=== PATIENT | female | born 1955 | race Caucasian/White ===

== ENCOUNTER 2019-01-04 23:13 | Observation (INO) ==
[2019-01-04 23:41] LABS: Basophils # 0.1 K/mcL (0.0-0.2); Basophils % 0.7 %; Eosinophils # 0.4 K/mcL (0.0-0.6); Eosinophils % 4.2 %; Hematocrit 37.3 % (35.3-44.9); Hemoglobin 12.5 g/dL (11.5-15.4); Immature Granulocytes % 0.2 % (0-4); Lymphocytes # 2.6 K/mcL (0.6-4.6); Lymphocytes % 29.4 %; Mean Corpuscular HGB Conc 33.5 g/dL (31.6-35.5); Mean Corpuscular Hemoglobin 29.8 pg (28.0-33.3); Mean Corpuscular Volume 88.8 fL (83.0-100.0); Mean Platelet Volume 11.2 fL (9.4-12.4); Monocytes # 0.8 K/mcL (0.0-1.3); Platelet Count 229 K/mcL (140-400); Red Cell Distribution Width 13.7 % (11.5-14.5); Segmented Neutrophils % 56.5 %; White Blood Count 8.8 K/mcL (4.3-11.1)
[2019-01-04 23:44] LABS: INR 0.9; Prothrombin Time 10.5 Seconds (9.4-12.1)
[2019-01-04] MEDS ORDERED: Aspirin 81 MG TAB.CHEW PO ONE (23:59)
[2019-01-05 00:02] LABS: BUN/Creatinine Ratio 28 (6-26); Blood Urea Nitrogen 20 mg/dL (8-23); Carbon Dioxide 22 mEq/L (23-29); Chloride 104 mEq/L (98-107); Glucose 95 mg/dL (70-105); Osmolality,Calculated 292 (280-300); Potassium 3.5 mEq/L (3.5-5.1); Sodium 140 mEq/L (136-145); eGFR For African Americans > 60 (> 60); eGFR For Non-African Americans > 60 (> 60)
[2019-01-05 00:03] LABS: Troponin I < 0.03 ng/mL (< 0.04)
[2019-01-05] MEDS: Nitroglycerin 0.4 MG TAB.SUBL SL PRN ×2 (00:11→00:17)
[2019-01-05] MEDS ORDERED: Naloxone 0.4 MG/ML INJ IVP PRN (00:51)
[2019-01-05] MEDS ORDERED: Ondansetron ODT 4 MG TAB.RAPDIS SL PRN (00:51)
[2019-01-05] MEDS ORDERED: *HR* Heparin 5,000 UNIT/ML VIAL SQ SCH (02:00)
[2019-01-05 02:28] LABS: Hematocrit 35.9 % (35.3-44.9); Hemoglobin 11.9 g/dL (11.5-15.4); Mean Corpuscular HGB Conc 33.1 g/dL (31.6-35.5); Mean Corpuscular Hemoglobin 29.2 pg (28.0-33.3); Mean Platelet Volume 11.4 fL (9.4-12.4); Platelet Count 235 K/mcL (140-400); Red Blood Count 4.08 M/mcL (3.82-4.97); Red Cell Distribution Width 13.9 % (11.5-14.5); White Blood Count 8.4 K/mcL (4.3-11.1)
[2019-01-05 02:44] LABS: BUN/Creatinine Ratio 31 (6-26); Blood Urea Nitrogen 20 mg/dL (8-23); Calcium 9.7 mg/dL (8.6-10.3); Carbon Dioxide 22 mEq/L (23-29); Chloride 105 mEq/L (98-107); Chol/HDL Ratio 3.4 (0-4.9); Glucose 118 mg/dL (70-105); Osmolality,Calculated 294 (280-300); Potassium 4.1 mEq/L (3.5-5.1); Sodium 140 mEq/L (136-145); eGFR For African Americans > 60 (> 60); eGFR For Non-African Americans > 60 (> 60)
[2019-01-05] MEDS ORDERED: FLUoxetine 20 MG CAPSULE PO SCH (09:00)
[2019-01-05] MEDS ORDERED: Bisoprolol/HCTZ 2.5/6.25 TABLET PO SCH (09:00)
[2019-01-05 09:23] LABS: Estimated Average Glucose 157 mg/dl
[2019-01-05 10:48] VITALS: BP 155/69
== END 2019-01-05 12:40 | disposition home or self-care (01) ==
LOC: EMEROOARM 23:13 → 3BNU 23:13 → SUATTDRO 01-05 01:04 → 3BNU 01-05 01:07
PROVIDERS: ADMIT Internal Medicine; ATTEND Family Medicine